=== PATIENT | female | born 1990 | race Asian ===

== ENCOUNTER 2020-10-02 09:01 | Outpatient (CLI) | payer OTHER | END 2020-10-02 21:05 | disposition home or self-care (01) | LOC: SUS 09:01 → EDSEX 09:01 → SUS 21:05 | DX: N88.8 Other specified noninflammatory disorders of cervix uteri (principal); N92.6 Irregular menstruation, unspecified | CPT/HCPCS: 76830-TC; 76857 ==

== ENCOUNTER 2020-12-31 16:50 | Outpatient (CLI) | payer OTHER ==
[2020-12-31 17:59] LABS: FREE T4 (FREE THYROXINE) 1.1 ng/dl (0.8-1.5); THYROID STIMULATING HORMONE 2.44 uIu/mL (0.36-3.74)
[2021-01-02 07:06] LABS: TRIIODOTHYRONINE, FREE 2.9 pg/mL (2.0-4.4)
[2021-01-02 08:57] LABS: HEMOGLOBIN A1C 5.8 % (4.8-5.6)
== END 2020-12-31 20:00 | disposition home or self-care (01) ==
LOC: SLB 16:50
DX: Z33.1 Pregnant state, incidental (principal); R73.01 Impaired fasting glucose
CPT/HCPCS: 36415; 82627; 82947; 83036; 84439; 84443; 84481

== ENCOUNTER → 2021-04-04 | Outpatient (CLI) | payer OTHER ==
[2021-04-04 10:20] LABS: FREE T4 (FREE THYROXINE) 0.9 ng/dl (0.8-1.5); THYROID STIMULATING HORMONE 2.83 uIu/mL (0.36-3.74)
[2021-04-05 07:06] LABS: PROGESTERONE <0.1 ng/mL (.)
[2021-04-06 13:20] LABS: HEMOGLOBIN A1C 5.8 % (4.8-5.6)
== END | disposition home or self-care (01) ==
LOC: SLB 09:13
PROVIDERS: ATTEND Obstetrics & Gynecology
DX: E06.0 Acute thyroiditis (principal)
CPT/HCPCS: 83036; 84144; 84439; 84443

== ENCOUNTER 2021-05-05 10:11 | Outpatient (CLI) | payer OTHER ==
[2021-05-05 12:17] LABS: BASOPHILS % (AUTO) 0.7 % (0.0-2.0); EOSINOPHILS # (AUTO) 0.1 K/uL (0.0-0.4); EOSINOPHILS % (AUTO) 1.4 % (0.0-4.0); HEMATOCRIT 38.6 % (36-48); HEMOGLOBIN 12.7 g/dL (12.0-16.0); LYMPHOCYTES # (AUTO) 2.2 K/uL (1.0-5.5); LYMPHOCYTES % (AUTO) 34.5 % (20.5-51.5); MEAN CORPUSCULAR HEMOGLOBIN 25 pg (27-31); MEAN CORPUSCULAR HGB CONC 33 % (32-36); MEAN CORPUSCULAR VOLUME 77 fL (79.0-98.0); MONOCYTES # (AUTO) 0.5 K/uL (0.0-1.0); MONOCYTES % (AUTO) 8.5 % (1.7-9.3); NEUTROPHILS # (AUTO) 3.4 K/uL (1.8-7.7); NEUTROPHILS % (AUTO) 54.9 % (40.0-70.0); PLATELET COUNT (AUTO) 266 K/uL (130-430); RED BLOOD CELL COUNT(AUTO) 5.05 MIL/uL (4.2-6.2); RED CELL DISTRIBUTION WIDTH 14.9 % (9.0-15.0); WHITE BLOOD COUNT (AUTO) 6.3 K/uL (4.8-10.8)
[2021-05-05 12:43] LABS: FREE T4 (FREE THYROXINE) 1.1 ng/dl (0.8-1.5); THYROID STIMULATING HORMONE 2.54 uIu/mL (0.36-3.74)
[2021-05-05 13:24] LABS: BILIRUBIN,URINE NEGATIVE (NEGATIVE); BLOOD, URINE NEGATIVE (NEGATIVE); CLARITY/URINE CLEAR (CLEAR); COLOR,URINE YELLOW (YELLOW); GLUCOSE,URINE NEGATIVE (NEGATIVE); KETONES,URINE NEGATIVE (NEGATIVE); LEUKOCYTE ESTERASE ,URINE 1+ (NEGATIVE); NITRITE, URINE NEGATIVE (NEGATIVE); PROTEIN URINE NEGATIVE (NEGATIVE); UROBILINOGEN,URINE 0.2 (0.2-1.0)
[2021-05-05 14:11] LABS: BACTERIA,URINE FEW /HPF (None Seen); CALCIUM OXALATE CRYSTALS,UR 0-10 /HPF (None Seen); RBC,URINE 0-3 /HPF (0-3)
[2021-05-06 09:06] LABS: HEMOGLOBIN A1C 5.6 % (4.8-5.6); PROGESTERONE 11.6 ng/mL (.)
[2021-05-08 10:06] LABS: HEPATITIS B SURFACE AG Negative (Negative)
[2021-05-10 18:06] LABS: RUBELLA AB, IgM <20.0 AU/mL (0.0-19.9)
== END 2021-05-05 14:00 | disposition home or self-care (01) ==
LOC: SLB 10:11
PROVIDERS: ATTEND Obstetrics & Gynecology
DX: Z33.1 Pregnant state, incidental (principal)
CPT/HCPCS: 36415; 81000; 82947; 83036; 84144; 84439; 84443; 84702; 85025; 86592; 86762; 86886; 86900; 86901; 87086; 87340

== ENCOUNTER 2021-05-18 09:36 | Outpatient (CLI) | payer OTHER | END 2021-05-18 12:00 | disposition home or self-care (01) | LOC: SUS 09:36 | PROVIDERS: ATTEND Obstetrics & Gynecology | DX: Z34.91 Encounter for supervision of normal pregnancy, unspecified, first trimester (principal); Z3A.08 8 weeks gestation of pregnancy | CPT/HCPCS: 76856-TC ==

== ENCOUNTER 2021-07-19 08:33 | Outpatient (CLI) | payer OTHER | END 2021-07-19 18:11 | disposition home or self-care (01) | LOC: SUS 08:33 | PROVIDERS: ATTEND Obstetrics & Gynecology | DX: Z34.92 Encounter for supervision of normal pregnancy, unspecified, second trimester (principal); Z33.1 Pregnant state, incidental; Z3A.16 16 weeks gestation of pregnancy | CPT/HCPCS: 76801 ==

== ENCOUNTER 2021-11-15 09:28 | Outpatient (CLI) | payer OTHER | END 2021-11-15 20:13 | disposition home or self-care (01) | LOC: SUS 09:28 | PROVIDERS: ATTEND Obstetrics & Gynecology | DX: Z34.93 Encounter for supervision of normal pregnancy, unspecified, third trimester (principal); Z3A.32 32 weeks gestation of pregnancy | CPT/HCPCS: 76805-TC ==

== ENCOUNTER 2021-12-08 11:07 | Outpatient (CLI) | payer OTHER ==
[2021-12-08 12:12] LABS: BASOPHILS % (AUTO) 0.4 % (0.0-2.0); EOSINOPHILS # (AUTO) 0.1 K/uL (0.0-0.4); EOSINOPHILS % (AUTO) 0.9 % (0.0-4.0); HEMATOCRIT 34.4 % (36-48); HEMOGLOBIN 11.3 g/dL (12.0-16.0); LYMPHOCYTES # (AUTO) 1.8 K/uL (1.0-5.5); LYMPHOCYTES % (AUTO) 27.5 % (20.5-51.5); MEAN CORPUSCULAR HEMOGLOBIN 25 pg (27-31); MEAN CORPUSCULAR HGB CONC 33 % (32-36); MEAN CORPUSCULAR VOLUME 78 fL (79.0-98.0); MONOCYTES # (AUTO) 0.6 K/uL (0.0-1.0); MONOCYTES % (AUTO) 8.7 % (1.7-9.3); NEUTROPHILS # (AUTO) 4.1 K/uL (1.8-7.7); NEUTROPHILS % (AUTO) 62.5 % (40.0-70.0); PLATELET COUNT (AUTO) 163 K/uL (130-430); RED BLOOD CELL COUNT(AUTO) 4.43 MIL/uL (4.2-6.2); RED CELL DISTRIBUTION WIDTH 17.6 % (9.0-15.0); WHITE BLOOD COUNT (AUTO) 6.6 K/uL (4.8-10.8)
[2021-12-08 13:05] LABS: BILIRUBIN,DIRECT 0.1 mg/dL (0.0-0.3); CALCIUM 9.7 mg/dL (8.4-11.0); CREATININE 0.64 mg/dL (0.55-1.30); POTASSIUM 3.8 mmol/L (3.5-5.1); TOTAL BILIRUBIN 0.1 mg/dL (0.0-1.0)
[2021-12-08 13:06] LABS: ALBUMIN 2.5 g/dL (3.4-4.8); URIC ACID 4.9 mg/dL (2.4-7.0)
== END 2021-12-08 19:11 | disposition home or self-care (01) ==
LOC: SLB 11:07
PROVIDERS: ATTEND Obstetrics & Gynecology
DX: N89.8 Other specified noninflammatory disorders of vagina (principal); Z33.1 Pregnant state, incidental
CPT/HCPCS: 36415; 80053; 80076; 84550; 85025

== ENCOUNTER 2021-12-08 12:07 | Observation (INO) | payer OTHER ==
[~2021-12-08] VITALS: Ht 167.6 cm; Wt 79.4 kg
== END 2021-12-08 15:24 | disposition home or self-care (01) ==
LOC: SPU 12:07
PROVIDERS: ADMIT Specialist; ATTEND Specialist
DX: O99.283 Endocrine, nutritional and metabolic diseases complicating pregnancy, third trimester (principal); E03.9 Hypothyroidism, unspecified; Z3A.34 34 weeks gestation of pregnancy; Z86.32 Personal history of gestational diabetes
CPT/HCPCS: G0379; G0378

== ENCOUNTER 2023-05-01 09:17 | Outpatient (CLI) | payer OTHER ==
[2023-05-01 10:14] LABS: EOSINOPHILS # (AUTO) 0.1 K/uL (0.0-0.4); EOSINOPHILS % (AUTO) 2.2 % (0.0-4.0); HEMATOCRIT 37.7 % (36-48); HEMOGLOBIN 12.3 g/dL (12.0-16.0); LYMPHOCYTES # (AUTO) 1.2 K/uL (1.0-5.5); LYMPHOCYTES % (AUTO) 30.1 % (20.5-51.5); MEAN CORPUSCULAR HEMOGLOBIN 26 pg (27-31); MEAN CORPUSCULAR HGB CONC 33 % (32-36); MEAN CORPUSCULAR VOLUME 78 fL (79.0-98.0); MONOCYTES # (AUTO) 0.3 K/uL (0.0-1.0); MONOCYTES % (AUTO) 6.7 % (1.7-9.3); NEUTROPHILS # (AUTO) 2.5 K/uL (1.8-7.7); PLATELET COUNT (AUTO) 325 K/uL (130-430); RED BLOOD CELL COUNT(AUTO) 4.84 MIL/uL (4.2-6.2); RED CELL DISTRIBUTION WIDTH 14.8 % (9.0-15.0); WHITE BLOOD COUNT (AUTO) 4.1 K/uL (4.8-10.8)
[2023-05-01 10:40] LABS: CALCIUM 9.3 mg/dL (8.4-11.0); CREATININE 0.63 mg/dL (0.55-1.30); FREE T4 (FREE THYROXINE) 0.8 ng/dL (0.6-1.6); POTASSIUM 4.1 mmol/L (3.5-5.1); THYROID STIMULATING HORMONE 4.54 uIu/mL (0.34-4.82); TOTAL BILIRUBIN 0.2 mg/dL (0.0-1.0)
[2023-05-01 10:46] LABS: HEMOGLOBIN A1C 6.08 % (<5.7)
[2023-05-02 08:07] LABS: T4 (THYROXINE) 6.9 ug/dL (4.5-12.0); THYROID PEROXIDASE (TPO) AB <9 IU/mL (0-34); TRIIODOTHYRONINE (T3) 136 ng/dL (71-180)
== END 2023-05-01 20:43 | disposition home or self-care (01) ==
LOC: SUS 09:17
PROVIDERS: ATTEND Obstetrics & Gynecology
DX: E03.9 Hypothyroidism, unspecified (principal)
CPT/HCPCS: 36415; 80053; 80061; 83037; 84436; 84439; 84443; 84480; 85025; 86376